=== PATIENT | female | born 1995 | race African-American/Black ===

== ENCOUNTER 2018-07-30 13:37 | Day surgery (SDC) | payer OTHER ==
[2018-07-30 14:10] VITALS: BP 112/64; TEMP 98.3; BMI 29.1
--- NOTE | 2018-07-30 23:10 | PRG ---
DATE OF SERVICE: 07/30/2018 PRIMARY OB: Dr. Goddard at [facility]. CHIEF COMPLAINT: Back and pelvic pain and discharge. HISTORY OF PRESENT ILLNESS: The patient is a 23-year-old female with an intrauterine at 33 weeks and 4 days, who is presenting to labor and delivery after attempting to be seen by her [facility] OB and was unable to. She reports that she has been having a lot of back and pelvic pain in t he last few days and worse with activity and movement, worse with rolling in bed. The patient works at [employer] is on her feet and 4 hours at a time moving things. Patient denies uterine contra ctions. She denies vaginal bleeding. She denies fall, fever, headache, chest pain, shortness of petra ath, nausea, vomiting. Denies diarrhea, report some constipation. Reports she has been having some increased discharge mucoid the last few days, but is white. The patient denies urgency, frequency of urination. Denies hip problems or knee problems or muscle weakness. PAST MEDICAL HISTORY: Anemia and scoliosis, eczema. PAST SURGICAL HISTORY: The patient had a tonsillectomy and wisdom teeth removed. ALLERGIES: No known drug allergies. MEDICATIONS: vitamins and iron. 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 OB LABS: Unavailable. REVIEW OF SYSTEMS: Per HPI. PHYSICAL EXAMINATION: VITAL SIGNS: Blood pressure 112/64, heart rate of 99, satting 98% on room air, temperature 98.3, pul se of 95, respiratory rate of 18. GENERAL: She appears to be in no acute distress. She is alert and oriented, cooperative and pleasan t to interact with. HEENT: Normocephalic, atraumatic. CHEST: Clear to auscultation bilaterally. HEART: Regular rate and rhythm. ABDOMEN: Soft and gravid. EXTREMITIES: Nontender, nonedematous. SKIN: Notably dry. Hands, particularly sore, but no cracking or erythema noted. The patient has so me SI joint pain and some paravertebral muscular tenderness to palpation in her lumbar region. She h as tenderness in her right lower pelvic with deviation of the uterus when stress was placed on the ro und ligament and cardinal ligaments. EXTREMITIES: Nontender, nonedematous. CERVICAL EXAM: Performed by nursing staff was 270, -2 station. The [employer] SERVICE [employer]ER-3 was collected. heart tracing performed. Fetus for abdominal and pelvic pain. Baseline was noted to be in the 140s with moderate long-term variability, positive acceleration and 15 x 15 accelerations, no decele rations. Tocometer just shows possible irritability, nothing seen and nor felt; consistent with uter ine contractions. [employer]ICE TE[employer]ER-3 demonstrating positive for Eva, negative for Gardnerella and Trichomonas. ASSESSMENT AND PLAN: The patient is a 23-year-old female with an intrauterine at 33 weeks and 4 days, who presented to Labor and Delivery with pelvic and back pain consistent with [facility] of . The patient has no evidence of contractions nor that she give any his tory of contractions. The patient is noted to have a cervical dilation of about 2 cm with effacement to 70% prior to this knowledge. 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 Fetus is as a category 1 tracing and reactive NST. The patie nt has an appointment with her doctor, Dr. Pennington next week. We have encouraged the patient to foll ow up with Dr. Pennington tomorrow to let him know that she was in the hospital and has a dilated cervix though she is not juanpablo. If patient is unable to get in with her physician tomorrow, we then asked her to return back to Labor and Delivery where a fibronectin test can be performed and if necessary, ultrasound for cervical length and possibly steroids. The patient has a history of 2 ter m deliveries; however, has a cervical dilation and effacement greater than expected. The patient goff s work fulltime at [employer], which I have encouraged that she have a conversation with her pro vider about the recommendations of discontinuing work, or reducing her work hours for the potential b enefit of prolong her to term or near term.
== END 2018-07-30 15:30 | disposition home or self-care (01) ==
LOC: L&D/OP 13:37
PROVIDERS: ATTEND Obstetrics & Gynecology
DX: O99.89 Other specified diseases and conditions complicating pregnancy, childbirth and the puerperium (principal); M54.9 Dorsalgia, unspecified; R10.2 Pelvic and perineal pain; Z3A.33 33 weeks gestation of pregnancy
CPT/HCPCS: 87480; 87510; 87660; 99283

== ENCOUNTER 2019-01-14 22:38 | Emergency (ER) | payer OTHER | END 2019-01-14 22:44 | disposition left against medical advice (07) | LOC: ERS 22:38 | DX: Z53.21 Procedure and treatment not carried out due to patient leaving prior to being seen by health care provider (principal) ==

== ENCOUNTER 2020-02-04 23:00 | Emergency (ER) | payer OTHER, SELFPAY | END 2020-02-05 00:03 | disposition home or self-care (01) | LOC: ERS 23:00 | DX: M54.2 Cervicalgia (principal); F17.210 Nicotine dependence, cigarettes, uncomplicated; V40.5XXA Car driver injured in collision with pedestrian or animal in traffic accident, initial encounter | CPT/HCPCS: 99282 ==

== ENCOUNTER 2022-02-22 20:57 | Emergency (ER) | payer OTHER, SELFPAY | END 2022-02-22 21:55 | disposition home or self-care (01) | LOC: ERS 20:57 | DX: L42 Pityriasis rosea (principal); L29.9 Pruritus, unspecified; F17.210 Nicotine dependence, cigarettes, uncomplicated | CPT/HCPCS: 99282 ==

== ENCOUNTER 2023-06-13 22:18 | Emergency (ER) | payer OTHER ==
[2023-06-13] MEDS ORDERED: Ketorolac Tromethamine 30 MG/ML VIAL ONE (23:26)
== END 2023-06-13 23:39 | disposition home or self-care (01) ==
LOC: ERS 22:18
DX: S06.0X0A Concussion without loss of consciousness, initial encounter (principal); V43.92XA Unspecified car occupant injured in collision with other type car in traffic accident, initial encounter
CPT/HCPCS: 96372; 99284; J1885

== ENCOUNTER 2024-08-15 12:35 | Emergency (ER) | payer BC ==
[2024-08-15] MEDS ORDERED: Acetaminophen 500 MG TAB ONE (12:58)
[2024-08-15] MEDS ORDERED: Ondansetron ODT 4 MG TAB ONE (12:58)
[2024-08-15 13:44] LABS: #Basophils 0.05 10x3/uL (0.0-0.2); %Basophils 0.3 % (0.0-1.0); %Lymphocytes 12.2 % (21.0-51.0); Hematocrit 34.2 % (36.0-47.0); Mean Corpuscular HGB CONC 35.1 g/dL (32.0-36.0); Mean Corpuscular Hemoglobin 30.9 pg (27.0-31.0); Mean Corpuscular Volume 88.1 fL (78.0-98.0); Mean Platelet Volume 9.7 fL (7.4-10.4); Platelet Count 346 10x3/uL (130-400); RBC Distribution Width 13.2 % (11.5-14.5); Red Blood Cell (RBC) Count 3.88 mill/uL (4.20-5.40)
[2024-08-15 13:53] LABS: BHCG - Serum Negative (NEGATIVE); Pregs Control Background? CLEAR/WHITE (CLR/WHITE); Pregs Control Bar Appear? YES (CONTROL BAR)
[2024-08-15 14:00] LABS: ALT (SGPT) 39 U/L (8-55); AST (SGOT) 32 U/L (5-34); Albumin 2.9 g/dL (3.5-5.0); Alkaline Phosphatase 84 U/L (40-110); Anion Gap 15 mmol/L (10-20); BUN (Urea Nitrogen) 10 mg/dL (7.0-18.7); Bilirubin, Total 0.5 mg/dL (0.2-1.2); Calc. Creatinine Clearance 0 mL/min (70-130); Calcium 8.9 mg/dL (7.8-10.44); Carbon Dioxide 20 mmol/L (22-29); Chloride 106 mmol/L (98-107); Estimated GFR 110; Globulin 4.2 g/dL (2.4-3.5); Glucose 99 mg/dL (70-105); Potassium 3.6 mmol/L (3.5-5.1); Protein, Total 7.1 g/dL (6.0-8.3); Sodium 137 mmol/L (136-145)
[2024-08-15] MEDS ORDERED: Sodium Chloride 0.9% 100 ML ONE (14:42)
[2024-08-15] MEDS ORDERED: Azithromycin 500 MG VIAL ONE (14:42)
[2024-08-15] MEDS ORDERED: cefTRIAXone (ROCEPHIN) 1 GM VIAL ONE (14:43)
== END 2024-08-15 15:24 | disposition home or self-care (01) ==
LOC: ERS 12:35
DX: J18.9 Pneumonia, unspecified organism (principal); F17.210 Nicotine dependence, cigarettes, uncomplicated; F17.290 Nicotine dependence, other tobacco product, uncomplicated
CPT/HCPCS: 36415; 71045; 80053; 83605; 84703; 85025; 87040; 96374; 96375; J0456; J0696; Q0162